=== PATIENT | male | born 1965 | race Caucasian/White ===

== ENCOUNTER 2017-09-11 10:08 | Emergency (ER) | payer BC ==
[2017-09-11 10:30] VITALS: BP 150/93
--- NOTE | 2017-09-11 10:40 | UC ---
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 Patient denies chest pain shortness of breath denies injury to his right lower leg - History of Current Complaint Chief Complaint: UCLowerExtremity Stated Complaint: SWOLLEN LEGS Time Seen by Provider: 09/11/17 10:36 Hx Obtained From: Patient Onset/Duration: Sudden Onset, Lasting Days - this is day 3, Still Present Severity Initially: Moderate Severity Currently: Moderate - Back Pain Intensity: 0 Aggravating Factor(s): Nothing Alleviating Factor(s): Nothing Able to Bear Weight: Yes - Allergies/Home Medications Allergies/Adverse Reactions: Allergies Allergy/AdvReac Type Severity Reaction Status Date / Time No Known Allergies Allergy Verified 09/11/17 10:30 PMH/Surg Hx/FS Hx/Imm Hx Previously Healthy: No Respiratory History: Asthma - Surgical History Surgical History: Yes Surgery Procedure, Year, and Place: Pyonadal cyst - Family History Known Family History: Positive: Diabetes - Social History Occupation: Employed Full-time Lives: With Family Alcohol Use: Rare Substance Use Type: None Smoking Status (MU): Never Smoked Tobacco - Immunization History Most Recent Tetanus Shot: UNK Review of Systems Constitutional: Negative Skin: Negative Eyes: Negative ENT: Negative Respiratory: Negative Cardiovascular: Negative Gastrointestinal: Negative Genitourinary: Negative Motor: Negative Neurovascular: Negative Musculoskeletal: Negative, Calf Tenderness - right leg, Myalgia - Tender swollen right lower leg Neurological: Negative Psychological: Negative Is Patient Immunocompromised?: No All Other Systems Reviewed And Are Negative: Yes Physical Exam Triage Information Reviewed: Yes Appearance: Well-Appearing, No Pain Distress, Well-Nourished Vital Signs: Initial Vital Signs Temp 98.6 F 09/11/17 10:25 Pulse 81 09/11/17 10:25 Resp 20 09/11/17 10:25 BP 150/93 09/11/17 10:25 Pulse Ox 98 09/11/17 10:25 Vital Signs Reviewed: Yes Eye Exam: Normal Eyes: Positive: Conjunctiva Clear ENT Exam: Normal ENT: Positive: Normal ENT inspection, Hearing grossly normal, Pharynx normal. Negative: Nasal congestion, Trismus, Muffled voice, Hoarse voice, Dental tenderness, Sinus tenderness Dental Exam: Normal Neck exam: Normal Neck: Positive: Supple, Nontender, No Lymphadenopathy Respiratory Exam: Normal Respiratory: Positive: Chest non-tender, Lungs clear, Normal breath sounds, No respiratory distress, No accessory muscle use Cardiovascular Exam: Normal Cardiovascular: Positive: RRR, No Murmur, Pulses Normal, Brisk Capillary Refill Musculoskeletal Exam: Other Musculoskeletal: Positive: Strength Intact, ROM Intact, Edema @ - right lower leg swelling and calf tenderness Neurological Exam: Normal Neurological: Positive: Alert, Muscle Tone Normal Psychological Exam: Normal Skin Exam: Normal Lower Extremity Course/Dx - Differential Dx/Diagnosis Provider Diagnoses: Elevated blood pressure without diagnosis of hypertension Discharge - Discharge Plan Condition: Stable Disposition: HOME Patient Education Materials: Hypertension (ED), Leg Edema (ED), Venous Insufficiency (DC) Referrals: [facility] [place] PHYSICIAN REFERRAL [Outside] - 2 Weeks
--- NOTE | 2017-09-11 11:24 | RAD ---
Indication: Right calf pain.. Duplex Doppler sonography of the deep venous system of the right lower extremity deep venous system was performed. Bilaterally the common femoral veins appear patent and compressible. Right proximal greater saphenous vein, proximal deep femoral vein, femoral vein, popliteal vein, posterior tibial veins and peroneal veins appear patent and compressible. IMPRESSION: NO EVIDENCE OF DEEP VENOUS THROMBOSIS IS IDENTIFIED.
== END 2017-09-11 11:48 | disposition home or self-care (01) ==
LOC: UCEAST 10:08
DX: M79.89 Other specified soft tissue disorders (principal); R03.0 Elevated blood-pressure reading, without diagnosis of hypertension
CPT/HCPCS: 99211; G0463

== ENCOUNTER 2017-10-12 10:20 | Emergency (ER) | payer BC ==
--- NOTE | 2017-10-12 12:25 | UC ---
Jorje Rowland Angela, scribed for Betito Mooney MD on 10/12/17 at 1042 . General HPI - HPI Summary HPI Summary: This pt is a 52 y/o male presenting to [facility] c/o nausea, vomiting and diarrhea since last night. Pt states that yesterday he ate a fish sandwich and a couple of hours later he developed nausea, vomiting, and diarrhea. He notes he had about 10 episodes of diarrhea and a couple of episodes of vomiting. This morning pt reports he was able to tolerate Gatorade without any nausea and vomiting. He states this morning he has had decreased frequency of diarrhea. Denies any PMHx. - History of Current Complaint Chief Complaint: UCGeneralIllness Stated Complaint: VOMITING Time Seen by Provider: 10/12/17 10:35 Hx Obtained From: Patient Onset/Duration: Lasting Hours, Still Present Timing: Constant Onset Severity: Severe Current Severity: Mild Pain Intensity: 0 Aggravating: nothing Alleviating: nothing Associated Signs & Symptoms: Positive: Diarrhea, Nausea, Vomiting. Negative: Abdominal Pain, Cough, Chest Pain, Fever, SOB - Allergy/Home Medications Allergies/Adverse Reactions: Allergies Allergy/AdvReac Type Severity Reaction Status Date / Time No Known Allergies Allergy Verified 10/12/17 10:29 PMH/Surg Hx/FS Hx/Imm Hx Previously Healthy: Yes Other Endocrine History: DENIES: diabetes Other Cardiovascular History: DENIES: HTN Respiratory History: Asthma GI/ History: Gastroesophageal Reflux - Surgical History Surgical History: Yes Surgery Procedure, Year, and Place: Pyonadal cyst - Family History Known Family History: Positive: Diabetes - Social History Alcohol Use: Rare Substance Use Type: None Smoking Status (MU): Never Smoked Tobacco - Immunization History Most Recent Tetanus Shot: UNK Review of Systems Constitutional: Negative Skin: Negative Eyes: Negative ENT: Negative Respiratory: Negative Cardiovascular: Negative Gastrointestinal: Vomiting, Diarrhea, Nausea Genitourinary: Negative Motor: Negative Neurovascular: Negative Musculoskeletal: Negative Neurological: Negative Psychological: Negative Is Patient Immunocompromised?: No All Other Systems Reviewed And Are Negative: Yes Physical Exam - Summary Physical Exam Summary: VITAL SIGNS: Reviewed. GENERAL: Patient is a well-developed and nourished male who is lying comfortable in the stretcher. Patient is not in any acute respiratory distress. HEAD AND FACE: Normocephalic EYES: PERRLA, EOMI x 2. EARS: Hearing grossly intact. MOUTH: Oropharynx within normal limits. NECK: Supple, trachea is midline, no adenopathy, no JVD, no carotid bruit. CHEST: Symmetric, no tenderness at palpation LUNGS: Clear to auscultation bilaterally. No wheezing or crackles. CVS: Regular rate and rhythm, S1 and S2 present, no murmurs or gallops appreciated. ABDOMEN: Soft, non-tender. Bowel sounds are normal. No abdominal abnormal pulsations. EXTREMITIES: Full ROM in all major joints, no edema, no cyanosis or clubbing. NEURO: Alert and oriented x 3. No acute neurological deficits. Speech is normal and follows commands. SKIN: Dry and warm Triage Information Reviewed: Yes Vital Signs: Initial Vital Signs Temp 98 F 10/12/17 10:26 Pulse 76 10/12/17 10:26 Resp 16 10/12/17 10:26 Pulse Ox 97 10/12/17 10:26 Vital Signs Reviewed: Yes Course/Dx - Course Course Of Treatment: This pt is a 52 y/o male presenting to [facility] c/o nausea, vomiting and diarrhea since last night. Pt states that yesterday he ate a fish sandwich and a couple of hours later he developed nausea, vomiting, and diarrhea. He notes he had about 10 episodes of diarrhea and a couple of episodes of vomiting. This morning pt reports he was able to tolerate Gatorade without any nausea and vomiting. He states this morning he has had decreased frequency of diarrhea. Denies any PMHx. Pt will be discharged home with follow up from his PCP. He was given a prescription for Zofran for the nausea. Pt was instructed to return to the urgent care or go to ER immediately if any of the symptoms return or worsens. Plan of care was discussed with the patient and pt understands and agrees. All questions were answered to patient satisfaction. There were no further complaints or concerns. Pt is hemodynamically stable, alert and oriented x3. - Differential Dx - Multi-Symptom Provider Diagnoses: Nausea, vomiting, and diarrhea Discharge - Sign-Out/Discharge Documenting (check all that apply): Discharge - discharge to home - Discharge Plan Condition: Stable Disposition: HOME Prescriptions: Ondansetron TAB* [Zofran 4 MG Tab*] 4 mg PO Q6H PRN #10 tab PRN Reason: Vomiting Patient Education Materials: Acute Nausea and Vomiting (ED), Acute Diarrhea (ED ) Forms: *Work Release Referrals: Isak REYNA,Jorge Rehman [Primary Care Provider] - Additional Instructions: Take medications as instructed Increase your fluid intake Return to the UC if symptoms worsen RETURN TO URGENT CARE OR THE ED FOR ANY WORSENING OR NEW SYMPTOMS. The documentation as recorded by the Jorje jean Angela accurately reflects the service I personally performed and the decisions made by , Betito Mooney MD.
== END 2017-10-12 10:50 | disposition home or self-care (01) ==
LOC: UCEAST 10:20
DX: R11.2 Nausea with vomiting, unspecified (principal); R19.7 Diarrhea, unspecified; J45.909 Unspecified asthma, uncomplicated; K21.9 Gastro-esophageal reflux disease without esophagitis
CPT/HCPCS: 99212; G0463

== ENCOUNTER 2018-04-23 06:58 | Emergency (ER) | payer BC ==
[2018-04-23] MEDS ORDERED: Albuterol/Ipratropium NEB.SOL* Albuterol 2.5 MG/Ipratropium 0.5 MG 3 ML INH ONE (07:19)
[2018-04-23] MEDS ORDERED: predniSONE TAB* 20 MG PO ONE (07:19)
--- NOTE | 2018-04-23 07:19 | ED ---
Asthma - HPI Summary HPI Summary: This pt is a 53 y/o male presenting to [facility] c/o shortness of breath since this morning. Pt reports he has hx asthma and this morning woke up with difficulty breathing. He notes coughing. Denies fever, chills, chest pain. Pt has used his inhalers and nebulizer treatment at home [employer] today with minimal relief. The last time he was in the hospital was "a while ago this year" for his asthma attack. He has been hospitalized in the past for an asthma attack. Denies any other PMHx. Pt denies hx of tobacco use. - History of Current Complaint Chief Complaint: EDAsthma Stated Complaint: ASTHMA Hx Obtained From: Patient Onset/Duration: Sudden Onset, Still Present Timing: Constant Current Severity: None Pain Intensity: 0 Pain Scale Used: 0-10 Numeric Aggravating Symptoms: Nothing Alleviating Symptoms: Nothing Associated Signs and Symptoms: Positive: Shortness of Breath - Allergy/Home Medications Allergies/Adverse Reactions: Allergies Allergy/AdvReac Type Severity Reaction Status Date / Time No Known Allergies Allergy Verified 04/23/18 07:23 PMH/Surg Hx/FS Hx/Imm Hx Endocrine/Hematology History: Denies: Hx Diabetes Cardiovascular History: Denies: Hx Coronary Artery Disease, Hx Hypertension, Hx Myocardial Infarction Respiratory History: Reports: Hx Asthma - Surgical History Surgery Procedure, Year, and Place: Pyonadal cyst Infectious Disease History: No Infectious Disease History: Denies: Traveled Outside the [place] in Last 30 Days - Family History Known Family History: Positive: Diabetes - Social History Alcohol Use: Rare Substance Use Type: Reports: None Smoking Status (MU): Never Smoked Tobacco Review of Systems Negative: Fever, Chills Positive: Shortness Of Breath All Other Systems Reviewed And Are Negative: Yes Physical Exam - Summary Physical Exam Summary: Appearance: Well appearing, no pain distress Skin: warm, dry, reflects adequate perfusion Head/face: normal Eyes: EOMI, DANIELA ENT: normal Neck: supple, nontender Respiratory: Occasional wheeze bilaterally Cardiovascular: RRR, pulses symmetrical Abdomen: nontender, soft Bowel: present Musculoskeletal: normal, strength/ROM intact Neuro: normal, sensory motor intact, A&Ox3 Triage Information Reviewed: Yes Vital Signs On Initial Exam: Initial Vitals Temp Pulse Resp BP Pulse Ox 97.7 F 89 22 165/99 97 04/23/18 07:00 04/23/18 07:00 04/23/18 07:00 04/23/18 07:00 04/23/18 07:00 Vital Signs Reviewed: Yes Diagnostics - Vital Signs Vital Signs Temp Pulse Resp BP Pulse Ox 04/23/18 07:00 97.7 F 89 22 165/99 97 - Laboratory Result Diagrams: 04/23/18 07:34 04/23/18 07:34 Lab Statement: Any lab studies that have been ordered have been reviewed, and results considered in the medical decision making process. - Radiology Chest XR Radiology Interpretation Completed By: Radiologist Summary of Radiographic Findings: IMPRESSION: No active cardiopulmonary disease is noted. Dr. Jackson has reviewed this report. - EKG 07:23 Cardiac Rate: NL - at 79 bpm EKG Rhythm: Sinus Rhythm Summary of EKG Findings: No acute changes. Re-Evaluation - Re-Evaluation First Eval Re-Evaluation Time: 08:17 Change: Improved Comment: Pt reports feeling better. He will be discharged home. Asthma Course/Dx - Course Assessment/Plan: Pt is a 53 y/o male, with hx of asthma, presents to the ED for shortness of breath since this morning. Pt has used his inhalers and nebulizer treatment at home [employer] today with minimal relief. In the ED course the pt was given duoneb and prednisone. After these medications he reports feeling better. Chest XR is negative for cardiopulmonary disease. Therefore, pt will be discharged home with follow up from his PCP. He was given a prescription for prednisone. Pt was given instructions to return to the ED for any worsening or new symptoms. - Diagnoses Provider Diagnoses: Asthma exacerbation Discharge - Sign-Out/Discharge Documenting (check all that apply): Patient Departure - Discharge home - Discharge Plan Condition: Stable Disposition: HOME Prescriptions: predniSONE TAB* [Deltasone 20 MG TAB*] 40 mg PO DAILY #4 tab Patient Education Materials: Asthma (ED) Forms: *Work Release Referrals: Isak REYNA,Jorge Rehman [Medical Doctor] - Additional Instructions: Please follow up with your primary care provider in 3 days. RETURN TO THE ED FOR ANY WORSENING SYMPTOMS. - Attestation Statements Document Initiated by Scribe: Yes Documenting Scribe: Hazel Recinos Provider For Whom Scribe is Documenting (Include Credential): Alexandre Jackson MD Scribe Attestation: Hazel Rowland, scribed for Alexandre Jackson MD on 04/23/18 at 0823.
[2018-04-23 07:46] LABS: ABS Basophils 0.1 10^3/ul (0-0.2); ABS Eosinophils 0.1 10^3/ul (0-0.6); ABS Monocytes 0.5 10^3/ul (0-0.8); ABS Neutrophils 3.9 10^3/ul (1.5-7.7); ABS Nucleated RBC 0 10^3/ul; Eosinophil % 1.6 % (0-6); Hematocrit 48 % (42-52); Hemoglobin 16.5 g/dl (14.0-18.0); Lymphocyte % 17.9 % (25-47); Mean Corpuscular HGB Conc 35 g/dl (31-36); Mean Corpuscular Hemoglobin 30 pg (27-31); Mean Corpuscular Volume 85 fL (80-94); Mean Platelet Volume 8.3 um3 (7.4-10.4); Nucleated Red Blood Cells % 0.2; Platelet Count 150 10^3/ul (150-450); Red Cell Distribution Width 14 % (10.5-15); White Blood Count 5.5 10^3/ul (3.5-10.8)
[2018-04-23 08:02] LABS: EGFR Non-African American 89.4 (>60)
--- NOTE | 2018-04-23 08:02 | RAD ---
Indication: Shortness of breath. Single frontal view of the chest performed at 0731 hours was reviewed. No prior study is available for review. No mediastinal shift is noted. Heart is of normal size and configuration. Lung trent appear clear. IMPRESSION: NO ACTIVE CARDIOPULMONARY DISEASE IS NOTED.
[2018-04-23 08:24] VITALS: BP 143/79
== END 2018-04-23 08:24 | disposition home or self-care (01) ==
LOC: ED 06:58
DX: J45.901 Unspecified asthma with (acute) exacerbation (principal)
CPT/HCPCS: 36415; 71045; 80053; 83880; 84484; 85025; 93005; 99283; A9270-GY; J7512